=== PATIENT | female | born 1980 | race Caucasian/White ===

== ENCOUNTER 2016-09-01 12:44 | Outpatient (CLI) | payer MEDICAID | END 2016-09-01 12:45 | disposition home or self-care (01) | DX: Z34.82 Encounter for supervision of other normal pregnancy, second trimester (principal) ==

== ENCOUNTER 2016-09-27 12:44 | Outpatient (CLI) | payer MEDICAID | END 2016-09-27 12:45 | disposition home or self-care (01) | DX: Z36 Encounter for antenatal screening of mother (principal) ==

== ENCOUNTER 2016-12-06 08:00 | Outpatient (CLI) | payer MEDICAID | END 2016-12-06 08:01 | disposition home or self-care (01) | DX: Z36 Encounter for antenatal screening of mother (principal) ==

== ENCOUNTER 2016-12-09 09:25 | Outpatient (CLI) | payer MEDICAID | END 2016-12-09 09:26 | disposition home or self-care (01) | DX: O36.62X0 Maternal care for excessive fetal growth, second trimester, not applicable or unspecified (principal) ==

== ENCOUNTER 2017-01-09 01:21 | Inpatient (IN) | payer MEDICAID ==
[2017-01-09 02:35] LABS: BASOPHILS # (AUTO) 0.1 10^3/uL (0.0-0.1); BASOPHILS % (AUTO) 0.5 %; EOSINOPHILS # (AUTO) 0.1 10^3/uL (0.0-0.7); EOSINOPHILS % (AUTO) 0.4 %; HGB - HEMOGLOBIN 12.7 g/dL (12.0-16.0); LYMPHOCYTES # (AUTO) 3.1 10^3/uL (1.5-3.5); MEAN CORPUSCULAR HEMOGLOBIN 27.4 pg (27.0-31.0); MEAN CORPUSCULAR HGB CONC 32.4 g/dL (32.0-36.0); MEAN CORPUSCULAR VOLUME 84.6 fL (81.0-99.0); MEAN PLATELET VOLUME 9.1 fL (7.9-10.8); MONOCYTES # (AUTO) 1.2 10^3/uL (0.0-1.0); MONOCYTES % (AUTO) 7.3 %; NEUTROPHILS % (AUTO) 72.8 %; RED BLOOD COUNT 4.61 10^6/uL (4.20-5.40); RED CELL DISTRIBUTION WIDTH 15.6 % (12.0-15.0); UNCORRECTED WHITE BLOOD COUNT 16.5 x10^3/uL; WHITE BLOOD COUNT 16.5 x10^3/uL (4.8-10.8)
[2017-01-09] MEDS ORDERED: SODIUM CHLORIDE FLUSH 0.9% 10 ML SYRINGE IVP PRN (02:35)
[2017-01-09] MEDS ORDERED: LIDOCAINE 1% 50 ML MDV ONE (02:37)
[2017-01-09] MEDS ORDERED: OXYTOCIN/LACTATED RINGERS 250 ML IV ONE ×2 (02:37→03:27)
[2017-01-09] MEDS ORDERED: LACTATED RINGERS 1,000 ML IV SCH ×2 (03:00→04:00)
[2017-01-09] MEDS ORDERED: WITCH HAZEL/GLYCERIN 1 EACH MED..PAD TOP PRN (03:27)
[2017-01-09] MEDS ORDERED: HYDROcod/ACETAM 5/325 MG TABLET PO PRN (03:27)
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
--- NOTE | 2017-01-09 03:47 | DELIVERY NOTE ---
Delivery Note - Instructions [place]/Slash: -Left hand click circles element as positive or present. -Right hand click slashes element as negative or not present. - Labor Labor: positive: Spontaneous - Delivery Method Infant Delivery Method: positive: Spontaneous vaginal delivery - Presentation Presentation: positive: Vertex, KULWANT - left occiput anterior - Nuchal Cord Nuchal Cord: positive: None - Amniotic Fluid Description Amniotic Fluid Description: positive: Clear - Episiotomy Type Episiotomy Type: positive: None - Laceration Laceration: positive: 1st degree - Suture Suture Type: positive: Vicryl Suture Size: positive: 3-0 - Delivery Outcome Delivery Outcome: positive: Livebirth - [place]: positive: Placed in direct skin contact with mother, Stimulated, Warmed , [place] used sex: positive: Female - Cord Cord: positive: 3 vessels - Placenta Placenta: positive: Intact, Spontaneous - Estimated Blood Loss Estimated Blood Loss (in cc): 200 - Post Delivery Events Post Delivery Events: positive: No post delivery events - Delivery Comments (Free Text/Narrative) Delivery Comments (Free Text/Narrative): Labor: This 36yo @ 40.3wks by 10.3wk U/S not c/w LMP dating, presented @ 0130 in active labor. Cervix was 8/100/-1 and vertex. FHR pattern demonstrated category I pattern throughout. Normal labor course. SROM occurred at home at 0040 and per patient was clear. : Normal SVB of a viable female . No nuchal. 's 9/9 at 1 and 5 minutes respectively at 0300 on 01/09/2017. The was placed on maternal abdomen, stimulated, dried, and placed skin to skin. The umbilical cord was allowed to stop pulsating and was doubly clamped and cut by FOB. Cord blood was obtained. Placenta delivered spontaneously and intact at 0310. 3VC. Pitocin was administered via IV for hemostasis. EBL 200mL. Uterine fundus firm and there is no excessive bleeding. The perineum, vagina, and cervix were inspected and found to have minor first degree laceration which was repaired using 3-[address]-1 needle in usual fashion under sterile conditions. Vaginal examination following the repair was done. Tissues well approximated. Family bonding well. Both mother and baby are in stable condition.
[2017-01-09] MEDS: IBUPROFEN 800 MG TABLET PO SCH ×3 (05:05→21:53)
[2017-01-09] MEDS: HYDROCORTISONE/PRAMOXINE 10 GM PR PRN ×2 (05:06→16:05)
[2017-01-09] MEDS ORDERED: SODIUM CHLORIDE FLUSH 0.9% 10 ML SYRINGE IVP SCH (06:00)
[2017-01-09] MEDS: ACETAMINOPHEN 500 MG TABLET PO SCH ×3 (06:10→21:52)
[2017-01-09] MEDS ORDERED: MEASLES,MUMPS & RUBELLA VACC 0.5 ML VIAL SUBQ ONE ×2 (08:31→14:00)
[2017-01-09] MEDS: DOCUSATE SODIUM 100 MG CAPSULE PO SCH ×2 (09:15→21:11)
[2017-01-10] MEDS: ACETAMINOPHEN 500 MG TABLET PO SCH (06:03)
[2017-01-10] MEDS: IBUPROFEN 800 MG TABLET PO SCH (06:04)
[2017-01-10] MEDS ORDERED: MAGNESIUM HYDROXIDE 2,400 MG/30 ML UDC PO PRN (08:24)
--- NOTE | 2017-01-10 08:50 | Discharge Plan ---
Discharge Plan Disposition: 01 Home, Self Care Condition: Good Diet: Regular Activity Restrictions: No Restrictions Shower Restrictions: No Driving Restrictions: No Weight Bearing: Full Weight Additional Instructions or Follow Up instructions: S: Bonding well with baby. without difficulty. Feeling tired today but otherwise doing well. Pain well controlled with ibuprofen. Requesting milk of magnesia for constipation. Bleeding decreased and is light. O: Heat RRR w/o M/G/R. Lungs CTAB. Abdomen soft and non-tender, fundus firm at U -1. Light lochia rubra. Bilateral LE's no edema. Perineum intact and repair without edema. A: 36yo -->P1 PPD#1 s/p TSVB MMR administered P: Reviewed pp self care and warning signs. Hand written Rx for ibuprofen 800mg 1 tab PO PRN pain # 60 with 1 refill and colace 100mg 1 tab PO PRN constipation # 60 with 1 refill. Pt planning Mirena IUD at 6 weeks for contraception. [facility] . Pt verbalized understanding and agrees to above plan. Denies further questions or concerns today. No Smoking: If you smoke, Please STOP! Call for help. Follow-up with: Vivi Eaton CNM, ARNP [Provider Admit Priv/Credential] -
[2017-01-10] MEDS: DOCUSATE SODIUM 100 MG CAPSULE PO SCH (08:57)
[2017-01-10 10:48] VITALS: BP 122/78
--- NOTE | 2017-01-10 10:50 | Labor Flowsheet ---
Labor Flowsheet Datetime Report Generated by CPN: 01/10/2017 10:49 Datetime: 01/10/2017 07:57 VITAL SIGNS NBP Sys/Anahi/Mean (mmHg): 127 : 81 : 92 Pulse: 87 LaborFlag: Labor Datetime: 01/10/2017 00:30 Temperature (F): 98.2 Temperature (C): 36.8 Temperature (C): 36.8 Datetime: 01/09/2017 04:40 SpO2 (%): 99 Datetime: 01/09/2017 03:00 UTERINE ACTIVITY Monitor Mode: External Frequency (min): 1.5-3.5 Quality: Strong Duration (sec): 50-80 Pattern: Normal: <= 5 Contractions in 10 Minutes ASSESSMENT A Monitor Mode: External US FHR Baseline Rate : 140 FHR Baseline Changes: No Baseline Change Variability: Moderate 6-25 bpm Accelerations: None Decelerations: Early; Variable PAIN Pain Location: Back PATIENT CARE Oxygen Method: Room Air STAGE 2 Pushing Position: Pushing with Contractions Pushing Progress: Descent with Pushing COMMUNICATION Communication: Provider at Bedside
== END 2017-01-10 10:48 | disposition home or self-care (01) | DRG 775 ==
LOC: WFO 01:21 → OB 01:21 → WFO 02:05
PROVIDERS: ADMIT Nurse Practitioner Obstetrics & Gynecology; ATTEND Nurse Practitioner Obstetrics & Gynecology
PROC: 10E0XZZ Delivery of Products of Conception, External Approach (ICD-10-PCS; principal; 2017-01-09)
PROC: 0HQ9XZZ Repair Perineum Skin, External Approach (ICD-10-PCS; 2017-01-09)
DX: O70.0 First degree perineal laceration during delivery (principal); O99.63 Diseases of the digestive system complicating the puerperium; K59.00 Constipation, unspecified; Z3A.40 40 weeks gestation of pregnancy; Z37.0 Single live birth; Z23 Encounter for immunization
CPT/HCPCS: 85025; 99212

== ENCOUNTER 2018-05-23 09:05 | Outpatient (CLI) | payer MEDICAID, OTHER ==
[2018-05-23 15:35] LABS: BASOPHILS % (AUTO) 0.6 %; EOSINOPHILS # (AUTO) 0.1 10^3/uL (0.0-0.7); EOSINOPHILS % (AUTO) 1.5 %; HGB - HEMOGLOBIN 13.7 g/dL (12.0-16.0); LYMPHOCYTES # (AUTO) 3.1 10^3/uL (1.5-3.5); LYMPHOCYTES % (AUTO) 39.4 %; MEAN CORPUSCULAR HEMOGLOBIN 30.1 pg (27.0-31.0); MEAN CORPUSCULAR HGB CONC 33.9 g/dL (32.0-36.0); MEAN PLATELET VOLUME 9.6 fL (7.9-10.8); MONOCYTES # (AUTO) 0.5 10^3/uL (0.0-1.0); MONOCYTES % (AUTO) 6.5 %; NEUTROPHILS # (AUTO) 4.1 10^3/uL (1.5-6.6); PLT - PLATELET COUNT 233 10^3/uL (130-450); RED BLOOD COUNT 4.54 10^6/uL (4.20-5.40); RED CELL DISTRIBUTION WIDTH 13.6 % (12.0-15.0); WHITE BLOOD COUNT 7.9 x10^3/uL (4.8-10.8)
[2018-05-23 15:48] LABS: ALBUMIN 4.2 g/dL (3.2-5.5); ALBUMIN/GLOBULIN RATIO 1.2 (1.0-2.2); ALKALINE PHOSPHATASE 33 IU/L (42-121); ALT ALANINE AMINOTRANSFERASE 19 IU/L (10-60); AST ASPARTATE AMINOTRANSFERASE 14 IU/L (10-42); BILIRUBIN,TOTAL 0.7 mg/dL (0.2-1.0); BUN - BLOOD UREA NITROGEN 17 mg/dL (6-20); CALCIUM 8.9 mg/dL (8.5-10.3); CARBON DIOXIDE - CO2 28 mmol/L (21-32); CHLORIDE 103 mmol/L (101-111); CHOL/HDL RATIO 4.8 (<4.4); CHOLESTEROL 213 mg/dL; CREATININE 0.5 mg/dL (0.4-1.0); GFR - MDRD 140 (>89); GLUCOSE 90 mg/dL (70-100); HDL CHOLESTEROL 44 mg/dL; LDL CHOLESTEROL,CALCULATED 129 mg/dL; LDL/HDL RATIO 2.9 (<4.4); SODIUM 137 mmol/L (135-145); TOTAL PROTEIN 7.6 g/dL (6.7-8.2); VLDL CHOLESTEROL 40 mg/dL
== END 2018-05-23 09:06 ==
LOC: LAB.R 09:05
PROVIDERS: ATTEND Physician Assistant Medical
DX: Z00.00 Encounter for general adult medical examination without abnormal findings (principal)
CPT/HCPCS: 80053; 80061; 83721; 84443; 85025

== ENCOUNTER 2018-09-19 08:00 | Outpatient (CLI) | payer OTHER ==
[2018-09-19 14:20] LABS: CHOL/HDL RATIO 4.8 (<4.4); CHOLESTEROL 188 mg/dL; HDL CHOLESTEROL 39 mg/dL; LDL CHOLESTEROL,CALCULATED 118 mg/dL; VLDL CHOLESTEROL 31 mg/dL
== END 2018-09-19 23:59 | disposition home or self-care (01) ==
LOC: LAB.R 08:00
PROVIDERS: ATTEND Physician Assistant Medical
DX: E78.6 Lipoprotein deficiency (principal); Z79.899 Other long term (current) drug therapy
CPT/HCPCS: 80061; 83721

== ENCOUNTER 2019-01-22 15:16 | Outpatient (CLI) | payer OTHER ==
--- NOTE | 2019-01-23 11:06 | XRAY Report ---
Reason: KNEE JOINT PAIN LT RT Procedure Date: 01/22/2019 Accession Number: [id number] / [id number] Procedure: XR - Knee 3 View BILAT CPT Code: FULL RESULT: EXAMS: 1. Right Knee Radiography 2. Left Knee Radiography EXAM DATE:01/22/2019 04:13 PM. CLINICAL HISTORY:Knee joint pain left and right. COMPARISON: None. TECHNIQUE: 3 views each. FINDINGS: Right Knee: Bones: Normal. No fractures or bone lesions. Joints: Normal. No effusion. No subluxations. Soft Tissues: Normal. No soft tissue swelling. Left Knee: Bones: Normal. No fractures or bone lesions. Joints: Normal. No effusion. No subluxations. Soft Tissues: Normal. No soft tissue swelling. IMPRESSION: No acute bony abnormality. RADIA
== END 2019-01-22 15:17 | disposition home or self-care (01) ==
LOC: DI 15:16
PROVIDERS: ATTEND Nurse Practitioner
DX: M25.561 Pain in right knee (principal); M25.562 Pain in left knee

== ENCOUNTER 2021-05-31 15:04 | Outpatient (CLI) | payer OTHER ==
--- NOTE | 2021-06-10 02:21 | XRAY Report ---
PROCEDURE: Foot 3 View LT INDICATIONS: L FOOT PX TECHNIQUE: 3 views of the foot were acquired. COMPARISON: None FINDINGS: Bones: No fractures or dislocations. No suspicious bony lesions. Soft tissues: No tibiotalar joint effusion. Achilles tendon appears normal. IMPRESSION: No visualized acute fracture or dislocation. However, occult injury cannot be excluded. Recommend shanika rt interval imaging follow-up in 7-10 days as clinically indicated for additional evaluation. Reviewed by: Kelsy Gutierrez MD on 06/10/2021 1:24 AM PDT Approved by: Kelsy Gutierrez MD on 06/10/2021 1:24 AM PDT Station ID: [id number]
== END 2021-05-31 23:59 | disposition home or self-care (01) ==
LOC: DI.N 15:04
PROVIDERS: ATTEND Physician Assistant Medical
DX: M79.672 Pain in left foot (principal)

== ENCOUNTER 2021-07-22 10:35 | Outpatient (CLI) | payer OTHER ==
--- NOTE | 2021-07-22 17:14 | MRI Report ---
PROCEDURE: Foot LT W/O INDICATIONS: PAINFUL LEFT FOOT TECHNIQUE: Noncontrast coronal and sagittal T1 spin echo and STIR; axial T1 spin echo and T2 fast spin echo with fat saturation through the left foot. COMPARISON: None. FINDINGS: Image quality: Excellent. Bones: There is no marrow edema. No fracture or dislocation. Mild talonavicular joint osteoarthritic changes are seen with joint space narrowing and subchondral sclerosis. No suspicious intraosseous les ion. No osteochondral injury of talar dome. Small amount of fluid is seen within tibiotalar joint and talonavicular joint. Soft tissues: There is thickened dorsal talonavicular ligament suggestive of ligament sprain. No full -thickness ligament rupture. Thickened calcaneonavicular ligament is also seen with intrasubstance T2 hyperintense signal near its navicular insertion suggestive of sprain/intrasubstance partial thickne ss tear. Thickened medial band of plantar fascia near its plantar calcaneal insertion is also seen wi th mild surrounding edema concerning for low-grade plantar fasciitis. The scanned muscles demonstrate normal overall bulk and internal signal. Extensor and flexor tendons of left foot are grossly intact . IMPRESSION: 1. Mild talonavicular joint osteoarthritic changes with small amount of joint fluid and mildly thicke [place] dorsal talonavicular ligament suggestive of low-grade ligament sprain. 2. Suggestion of sprain/low-grade intrasubstance partial thickness tear involving calcaneonavicular l igament at its navicular insertion. 3. Mildly thickened medial band of plantar fascia near its calcaneal insertion which may indicate low -grade plantar fasciitis. Reviewed by: Reinier Melchor MD on 07/22/2021 5:13 PM PST Approved by: Reinier Melchor MD on 07/22/2021 5:13 PM PST Station ID: [id number]
== END 2021-07-22 10:36 | disposition home or self-care (01) ==
LOC: DI 10:35
PROVIDERS: ATTEND Podiatrist
DX: M79.672 Pain in left foot (principal); M19.072 Primary osteoarthritis, left ankle and foot

== ENCOUNTER 2022-03-15 14:25 | Outpatient (CLI) | payer OTHER ==
[2022-03-15 14:39] LABS: HCT - HEMATOCRIT 39.9 % (37.0-47.0); HGB - HEMOGLOBIN 13.1 g/dL (12.0-16.0); MEAN CORPUSCULAR HEMOGLOBIN 30.5 pg (27.0-31.0); MEAN CORPUSCULAR HGB CONC 32.8 g/dL (32.0-36.0); MEAN CORPUSCULAR VOLUME 92.8 fL (81.0-99.0); RED BLOOD COUNT 4.3 10^6/uL (4.20-5.40); RED CELL DISTRIBUTION WIDTH 12.8 % (12.0-15.0); WHITE BLOOD COUNT 7.5 x10^3/uL (4.8-10.8)
[2022-03-15 15:18] LABS: THYROID STIMULATING HORMONE 0.78 uIU/mL (0.34-5.60)
[2022-03-15 15:20] LABS: FREE T4 (FREE THYROXINE) 0.85 ng/dL (0.58-1.64)
[2022-03-15 15:45] LABS: FOLLICLE STIMULATING HORMONE 5.48 mIU/mL
== END 2022-03-15 14:26 | disposition home or self-care (01) ==
LOC: LAB 14:25
PROVIDERS: ATTEND Nurse Practitioner Obstetrics & Gynecology
DX: Z31.41 Encounter for fertility testing (principal); R53.83 Other fatigue
CPT/HCPCS: 36415; 83001; 84439; 84443; 85027

== ENCOUNTER 2022-05-16 15:07 | Outpatient (CLI) | payer OTHER ==
[2022-05-16 15:36] LABS: CALCIUM 9.4 mg/dL (8.5-10.3); CREATININE 0.6 mg/dL (0.4-1.0); POTASSIUM 3.9 mmol/L (3.5-5.0)
== END 2022-05-16 15:08 | disposition home or self-care (01) ==
LOC: LAB 15:07
PROVIDERS: ATTEND Physician Assistant
DX: Z51.81 Encounter for therapeutic drug level monitoring (principal)
CPT/HCPCS: 36415; 80048

== ENCOUNTER 2023-10-13 17:39 | Outpatient (CLI) | payer OTHER ==
--- NOTE | 2023-10-14 20:42 | XRAY Report ---
PROCEDURE: Ankle 3+V RT INDICATIONS: SPRAIN OF UNSPECIFIED LIGAMENT OF RIGHT ANKLE TECHNIQUE: 3 views of the ankle were acquired. COMPARISON: None. FINDINGS: Bones: No fractures or dislocations. Ankle mortise is normally aligned. No suspicious bony lesions . Soft tissues: No tibiotalar joint effusion. Achilles tendon appears normal. Small Achilles calcane al enthesophyte. IMPRESSION: No acute bony abnormality. If there remains a high clinical concern for fracture, consider cross-sect ional imaging now. If pain persists, consider repeat x-ray in 10-14 days or cross-sectional imaging. Reviewed by: Gisell Lo MD on 10/14/2023 8:41 PM PST Approved by: Gisell Lo MD on 10/14/2023 8:41 PM PST Station ID: [id number]
== END 2023-10-13 17:40 | disposition home or self-care (01) ==
LOC: DI 17:39
PROVIDERS: ATTEND Nurse Practitioner
DX: S93.401A Sprain of unspecified ligament of right ankle, initial encounter (principal)

== ENCOUNTER 2024-04-02 16:58 | Outpatient (CLI) | payer OTHER ==
[2024-04-02 17:11] LABS: BASOPHILS # (AUTO) 0.1 10^3/uL (0.0-0.1); BASOPHILS % (AUTO) 0.6 %; EOSINOPHILS % (AUTO) 0.5 %; HCT - HEMATOCRIT 41.3 % (37.0-47.0); HGB - HEMOGLOBIN 13.1 g/dL (12.0-16.0); LYMPHOCYTES # (AUTO) 2.3 10^3/uL (1.5-3.5); LYMPHOCYTES % (AUTO) 28.9 %; MEAN CORPUSCULAR HEMOGLOBIN 28.9 pg (27.0-31.0); MEAN CORPUSCULAR HGB CONC 31.7 g/dL (32.0-36.0); MEAN CORPUSCULAR VOLUME 91.2 fL (81.0-99.0); MEAN PLATELET VOLUME 10.2 fL (7.9-10.8); MONOCYTES # (AUTO) 0.5 10^3/uL (0.0-1.0); MONOCYTES % (AUTO) 5.8 %; NEUTROPHILS # (AUTO) 5.2 10^3/uL (1.5-6.6); PLT - PLATELET COUNT 285 10^3/uL (130-450); RED BLOOD COUNT 4.53 10^6/uL (4.20-5.40); RED CELL DISTRIBUTION WIDTH 13.1 % (12.0-15.0); WHITE BLOOD COUNT 8.1 x10^3/uL (4.8-10.8)
[2024-04-02 17:29] LABS: ALBUMIN 4.4 g/dL (3.2-5.5); ALBUMIN/GLOBULIN RATIO 1.3 (1.0-2.2); ALKALINE PHOSPHATASE 28 IU/L (42-121); ALT ALANINE AMINOTRANSFERASE 20 IU/L (10-60); AST ASPARTATE AMINOTRANSFERASE 14 IU/L (10-42); BILIRUBIN,TOTAL 0.6 mg/dL (0.2-1.0); BUN - BLOOD UREA NITROGEN 9 mg/dL (6-20); CALCIUM 9.3 mg/dL (8.5-10.3); CARBON DIOXIDE - CO2 28 mmol/L (21-32); CHLORIDE 104 mmol/L (101-111); CHOL/HDL RATIO 4.1 (<4.4); CHOLESTEROL 183 mg/dL; CREATININE 0.5 mg/dL (0.6-1.3); GFR - MDRD 136 (>89); GLUCOSE 95 mg/dL (74-104); HDL CHOLESTEROL 45 mg/dL; LDL CHOLESTEROL,CALCULATED 109 mg/dL; LDL/HDL RATIO 2.4 (<4.4); POTASSIUM 3.9 mmol/L (3.5-4.5); SODIUM 138 mmol/L (135-145); TOTAL PROTEIN 7.8 g/dL (6.4-8.9); TRIGLYCERIDES 145 mg/dL; VLDL CHOLESTEROL 29 mg/dL
[2024-04-02 17:40] LABS: THYROID STIMULATING HORMONE 0.69 uIU/mL (0.34-5.60)
== END 2024-04-02 16:59 | disposition home or self-care (01) ==
LOC: LAB 16:58
PROVIDERS: ATTEND Physician Assistant
DX: L60.9 Nail disorder, unspecified (principal); Z51.81 Encounter for therapeutic drug level monitoring
CPT/HCPCS: 36415; 80053; 80061; 83721; 84443; 85025